=== PATIENT | female | born 1990 | race Caucasian/White ===

== ENCOUNTER 2020-06-01 09:50 | Observation (INO) ==
[2020-06-01] MEDS ORDERED: 0.9 % Sodium Chloride 1,000 ML IVC SCH (12:15)
[2020-06-01] MEDS ORDERED: *HR* Rocuronium Bromide 50 MG/5 ML VIAL ONE (13:07)
[2020-06-01] MEDS ORDERED: *HR* FentaNYL (PF) 100 MCG/2 ML VIAL ONE (13:07)
[2020-06-01] MEDS ORDERED: *HR* Midazolam HCl 2 MG/2 ML VIAL ONE (13:07)
[2020-06-01] MEDS ORDERED: *HR* Propofol 200 MG/20 ML VIAL IVP ONE (13:07)
[2020-06-01] MEDS ORDERED: Lidocaine -MPF 2% 2 ML VIAL ONE (13:07)
[2020-06-01] MEDS ORDERED: *HR* Succinylcholine 200 MG/10 ML VIAL IVP ONE (13:07)
[2020-06-01] MEDS ORDERED: Dexamethasone 4 MG/ML VIAL ONE (13:12)
[2020-06-01] MEDS ORDERED: *HR* OxyCODONE Immed Rel 5 MG TABLET PO PRN (13:20)
[2020-06-01] MEDS ORDERED: *HR* HYDROmorphone PF 0.5 MG/0.5 ML SYRINGE IVP PRN (13:20)
[2020-06-01] MEDS ORDERED: *HR* Midazolam HCl 2 MG/2 ML VIAL IVP PRN (13:20)
[2020-06-01] MEDS ORDERED: Ondansetron 4 MG/2 ML VIAL IVP PRN ×2 (13:20→14:40)
[2020-06-01] MEDS ORDERED: Acetaminophen IV 1,000 MG/100 ML INFUS..BTL IVPB ONE (13:20)
[2020-06-01] MEDS ORDERED: Neostigmine Methylsulfate 3 MG/3 ML SYRINGE ONE (13:32)
[2020-06-01] MEDS ORDERED: Ondansetron 4 MG/2 ML VIAL ONE (13:33)
[2020-06-01] MEDS ORDERED: Ketorolac 30 MG/ML VIAL ONE (13:42)
[2020-06-01] MEDS ORDERED: *HR* OxyCODONE/APAP 5/325 TABLET PO PRN (14:40)
[2020-06-01 16:05] VITALS: BP 110/72
[2020-06-01] MEDS ORDERED: Ketorolac 15 MG/ML VIAL IVP SCH (18:00)
== END 2020-06-01 17:34 | disposition home or self-care (01) ==
LOC: 3ANU
PROVIDERS: ADMIT Surgery; ATTEND Surgery